=== PATIENT | female | born 1955 | race Asian ===

== ENCOUNTER 2016-06-10 01:38 | Day surgery (SDC) | payer OTHER ==
[2016-06-10] VITALS (7 sets, daily range): BP systolic 111–129; BP diastolic 73–80; PULSE 60–67; RESP 13–25; O2SAT 97–100
[~2016-06-10] VITALS: Ht 165.1 cm; Wt 53.5 kg
[~2016-06-10 01:38] MED LIST: ALBU8.5H2 INHALATION; ASPI-973 PO; CHOL400T PO
[2016-06-10] MEDS ORDERED: 0.9% Sodium Chloride 1,000 ML IV PRN (07:28)
[2016-06-10] MEDS ORDERED: Bupivacaine-MPF 0.5% 30 mL Inj ONE (10:22)
[2016-06-10] MEDS ORDERED: Heparin 10,000 Unit/1,000 mL NS Premix IV ONE (10:24)
[2016-06-10] MEDS ORDERED: fentaNYL-PF 50 mCg/mL 2 mL Inj ONE (10:36)
--- NOTE | 2016-06-10 12:45 | NUR ---
GREGORIO ASSUMED CARE OF PT AT 1100 UPON RETURN FROM [facility] [facility]PERATOR. LOOP RECORDER WAS PLACED AND MID CHEST DRSG HAS REMAINED C/D/I. DISCHARGE INSTRUCTIONS REVIEWED WITH PT AND SON. F/U FOR WOUND CHECK 06/23/16. POST SEDATION INSTRUCTIONS ALSO REVIEWED. PT AND SON VERBALIZED UNDERSTANDING. PT WAS DISCHARGED IN STABLE CONDITION AT 1200.
--- NOTE | 2016-06-10 13:51 | OP ---
[address] [address] OPERATIVE REPORT PATIENT: GIANNA MALONEY : 1955 MR#: [id number] ADMIT: 06/10/2016 JOB ID: [id number] DATE OF SURGERY: 06/10/2016 SURGEON: Ileana Garzon MD PREOPERATIVE DIAGNOSIS(ES): Cryptogenic stroke. POSTOPERATIVE DIAGNOSIS(ES): Cryptogenic stroke. PATIENT PROFILE: The patient is a 61-year-old lady with history of tobacco abuse. She suffered ischemic stroke due to an embolism of the left middle cerebral artery. PROCEDURE: Injectable loop recorder implantation. COMPLICATION: None. IMPLANTED DEVICE: [employer] LINQ model LNQ11, serial number [id number]. DESCRIPTION OF PROCEDURE: The left parasternal area was prepped and draped under standard sterile technique. The left parasternal region was infiltrated with a 50/50% mixture of lidocaine and Marcaine. The skin incision was made with the provided scalpel. An injectable loop recorder was then implanted in the subcutaneous tissue under the provided applicator. After hemostasis was achieved, the skin was approximated with Dermabond. The patient tolerated the procedure well and was transferred to her room in stable condition. The device was set to detect bradycardia below 30 beats per minute, tachycardia above 171 beats per minute, and pause over 3 seconds. The sensitivity threshold is 0.035 mV. MTDD
[2016-08-04] MEDS ORDERED: ATRV10T PO (15:24)
== END 2016-06-10 23:59 | disposition home or self-care (01) ==
LOC: SOUO 01:38
PROVIDERS: ATTEND Internal Medicine Interventional Cardiology
DX: I63.412 Cerebral infarction due to embolism of left middle cerebral artery (principal); Z87.891 Personal history of nicotine dependence; Z79.82 Long term (current) use of aspirin
CPT/HCPCS: 33282; 93005; 99152; C1764; J1644; J2250; J3010